=== PATIENT | male | born 1960 | race Caucasian/White ===

== ENCOUNTER 2018-04-11 08:40 | Emergency (ER) | payer SELFPAY ==
--- NOTE | 2018-04-11 09:46 | ER Document Report ---
ED General - General Chief Complaint: Fever Stated Complaint: BREATHING PROBLEMS,FEVER Time Seen by Provider: 04/11/18 09:45 Notes: Patient is a 58-year-old male that presents to the emergency department for chief complaint of shortness of breath, and fever. Patient states his been feeling more short of breath of the past week, with having to take breaks with his normal activities, to catch his breath. He believes he has COPD but has not been diagnosed with it, he is a former heavy smoker. He states he is noticed wheezing, and he is felt febrile, but did not take his temperature over the last 3 days. He denies noting any significant cough, congestion, nausea, vomiting, abdominal pain or chest pain. Past Medical History: Possible COPD Past Surgical History: Denies surgical history Social History: Former heavy smoker, denies illicit drug use, admits to occasional alcohol use. Family History: Reviewed and noncontributory for presenting illness Allergies: Reviewed, see documented allergy list. REVIEW OF SYSTEMS: Other than noted above, the 12 point review of systems was reviewed with the patient and were negative, all pertinent findings are included in the HPI. PHYSICAL EXAMINATION: Vital signs reviewed, nursing noted reviewed. GENERAL: Well-appearing, well-nourished and in no acute distress. HEAD: Atraumatic, normocephalic. EYES: Eyes appear normal, extraocular movements intact, sclera anicteric, conjunctiva are normal. ENT: nares patent, oropharynx clear without exudates. Moist mucous membranes. NECK: Normal range of motion, supple without lymphadenopathy LUNGS: Significantly diminished lung sounds, faint expiratory wheezing noted throughout all lung arndt, no rales, no acute respiratory distress. HEART: Regular rate and rhythm without murmurs ABDOMEN: Soft, obese, nontender, normoactive bowel sounds. No rebound, guarding , or rigidity. No masses appreciated. EXTREMITIES: Nontender, good range of motion, no pitting or edema. NEUROLOGICAL: No focal neurological deficits. Moves all extremities spontaneously Motor and sensory grossly intact on exam. PSYCH: Normal mood, normal affect. SKIN: Warm, Dry, normal turgor, no rashes or lesions noted on exposed skin - Related Data Allergies/Adverse Reactions: No Known Allergies Allergy (Verified 04/11/18 08:47) Past Medical History - Social History Smoking Status: Former Smoker Family History: Reviewed & Not Pertinent Patient has suicidal ideation: No Patient has homicidal ideation: No Renal/ Medical History: Denies: Hx Peritoneal Dialysis - Immunizations Hx Diphtheria, Pertussis, Tetanus Vaccination: Yes Physical Exam - Vital signs Vitals: Temp Pulse Resp BP Pulse Ox 98.1 F 81 18 149/92 H 96 04/11/18 08:51 04/11/18 08:51 04/11/18 08:51 04/11/18 08:51 04/11/18 08:51 Course - Re-evaluation Re-evalutation: Patient seen and examined vital signs reviewed. Laboratory data and imaging were ordered as appropriate for the patient's presenting symptoms and complaint, with consideration of any critical or life threatening conditions that may be associated with their obtained history and exam as noted above. Patient was treated with DuoNeb breathing treatments, and IV Solu-Medrol. Results were reviewed when available and demonstrated negative chest x-ray, blood work unremarkable, troponin negative The patient was re-evaluated and was much improved, not hypoxic Evaluation was most consistent with acute exacerbation of COPD, advised follow- up with primary care, given referral, given prescriptions for albuterol, and prednisone to take, advised return if symptoms worsen. Results were discussed with the patient at this point, after careful consideration I feel that that patient can be discharged from the emergency department, the patient was educated treatments and reasons to return to the emergency department based on their presumed diagnosis as noted above, they were advised to followup with a primary care physician in 2-3 days. Patient was agreeable to plan of care. *Note is created using voice recognition software and may contain spelling, syntax or grammatical errors. Laboratory 04/11/18 04/11/18 04/11/18 09:45 09:45 09:45 WBC 2.8 L RBC 4.04 L Hgb 13.9 Hct 40.5 MCV 100 H MCH 34.4 H MCHC 34.2 RDW 13.2 Plt Count 158 Seg Neutrophils % 72.4 Lymphocytes % 16.1 Monocytes % 10.7 Eosinophils % 0.4 Basophils % 0.4 Absolute Neutrophils 2.1 Absolute Lymphocytes 0.5 Absolute Monocytes 0.3 Absolute Eosinophils 0.0 Absolute Basophils 0.0 Sodium Cancelled Potassium Cancelled Chloride Cancelled Carbon Dioxide Cancelled Anion Gap Cancelled BUN Cancelled Creatinine Cancelled Est GFR ( Amer) Cancelled Est GFR (Non-Af Amer) Cancelled Glucose Cancelled Calcium Cancelled Total Bilirubin Cancelled Direct Bilirubin Cancelled Neonat Total Bilirubin Cancelled Neonat Direct Bilirubin Cancelled Neonat Indirect Bili Cancelled AST Cancelled ALT Cancelled Alkaline Phosphatase Cancelled Troponin I Cancelled Total Protein Cancelled Albumin Cancelled Urine Color Urine Appearance Urine pH Ur Specific Holmes Urine Protein Urine Glucose (UA) Urine Ketones Urine Blood Urine Nitrite Urine Bilirubin Urine Urobilinogen Ur Leukocyte Esterase Urine WBC (Auto) Urine RBC (Auto) Urine Mucus (Auto) Urine Ascorbic Acid 04/11/18 04/11/18 04/11/18 09:45 10:59 10:59 WBC RBC Hgb Hct MCV MCH MCHC RDW Plt Count Seg Neutrophils % Lymphocytes % Monocytes % Eosinophils % Basophils % Absolute Neutrophils Absolute Lymphocytes Absolute Monocytes Absolute Eosinophils Absolute Basophils Sodium 138.5 Potassium 4.5 Chloride 100 Carbon Dioxide 29 Anion Gap 10 BUN 14 Creatinine 0.73 Est GFR ( Amer) > 60 Est GFR (Non-Af Amer) > 60 Glucose 106 Calcium 8.8 Total Bilirubin 1.0 Direct Bilirubin 0.4 Neonat Total Bilirubin Not Reportable Neonat Direct Bilirubin Not Reportable Neonat Indirect Bili Not Reportable AST 82 H ALT 80 H Alkaline Phosphatase 85 Troponin I < 0.012 Total Protein 6.7 Albumin 4.0 Urine Color YELLOW Urine Appearance CLEAR Urine pH 5.0 Ur Specific Holmes 1.014 Urine Protein NEGATIVE Urine Glucose (UA) NEGATIVE Urine Ketones NEGATIVE Urine Blood SMALL H Urine Nitrite NEGATIVE Urine Bilirubin NEGATIVE Urine Urobilinogen NEGATIVE Ur Leukocyte Esterase NEGATIVE Urine WBC (Auto) 0 Urine RBC (Auto) 2 Urine Mucus (Auto) RARE Urine Ascorbic Acid NEGATIVE Chest X-Ray 04/11/18 09:28 IMPRESSION: NO ACUTE RADIOGRAPHIC FINDING IN THE CHEST. - Vital Signs Vital signs: Temp Pulse Resp BP Pulse Ox 99.0 F 110 H 18 140/69 H 95 04/11/18 12:26 04/11/18 12:26 04/11/18 12:26 04/11/18 12:26 04/11/18 12:26 - Laboratory Result Diagrams: 04/11/18 09:45 04/11/18 10:59 Laboratory results interpreted by me: 04/11/18 04/11/18 04/11/18 09:45 09:45 10:59 WBC 2.8 L RBC 4.04 L MCV 100 H MCH 34.4 H AST 82 H ALT 80 H Urine Blood SMALL H - EKG Interpretation by Me Additional EKG results interpreted by me: EKG demonstrates sinus rhythm with a ventricular rate of 77 bpm, normal axis, normal intervals, no evidence of acute ischemia on this EKG, no prior for comparison. Discharge - Discharge Clinical Impression: Acute exacerbation of chronic obstructive pulmonary disease (COPD) Condition: Stable Disposition: HOME, SELF-CARE Additional Instructions: Please return to the emergency department if you have any worsening, or concern of your symptoms. Please return to the emergency department if you develop chest pain, difficulty breathing, severe abdominal pain, or ongoing vomiting. Please follow-up with your primary care physician in 2-3 days and any other recommended physicians. If prescribed, take all medications as directed. If you have any questions or concerns do not hesitate to return the emergency department for evaluation. Prescriptions: Prednisone [Deltasone 20 mg Tablet] 3 tab PO DAILY 5 Days #15 tablet Referrals: ZACK LEDEZMA MD [ACTIVE STAFF] - Follow up in 3-5 days (or your primary care. )
[2018-04-11] MEDS ORDERED: METHYLPREDNISOLONE INJ 125 MG/2 ML SDV IV ONE (10:05)
[2018-04-11] MEDS ORDERED: IPRATROPIUM/ALBUTEROL 0.5-2.5 MG/3 ML AMPUL NEB ONE (10:05)
--- NOTE | 2018-04-11 10:09 | RADIOLOGY REPORT (SQ) ---
EXAM DESCRIPTION: CHEST SINGLE VIEW COMPLETED DATE/TIME: 04/11/2018 9:46 am REASON FOR STUDY: SOB COMPARISON: None. EXAM PARAMETERS: NUMBER OF VIEWS: One view. TECHNIQUE: Single frontal radiographic view of the chest acquired. RADIATION DOSE: NA LIMITATIONS: None. FINDINGS: LUNGS AND PLEURA: No opacities, masses or pneumothorax. No pleural effusion. MEDIASTINUM AND HILAR STRUCTURES: No masses. Contour normal. HEART AND VASCULAR STRUCTURES: Heart normal in size. Normal vasculature. BONES: No acute findings. HARDWARE: None in the chest. OTHER: No other significant finding. IMPRESSION: NO ACUTE RADIOGRAPHIC FINDING IN THE CHEST. TECHNICAL DOCUMENTATION: JOB ID: [id number] [employer]- All Rights Reserved Reading location - IP/workstation name: [email or web address]
[2018-04-11 10:14] LABS: ABSOLUTE LYMPHOCYTES (AUTO) 0.5 10^3/uL (0.5-4.7); ABSOLUTE MONOCYTES (AUTO) 0.3 10^3/uL (0.1-1.4); ABSOLUTE NEUT (AUTO) 2.1 10^3/uL (1.7-8.2); BASOPHILS % (AUTO) 0.4 % (0-2); EOSINOPHILS % (AUTO) 0.4 % (0-6); HEMATOCRIT 40.5 % (37.9-51.0); HEMOGLOBIN 13.9 g/dL (13.5-17.0); LYMPHOCYTES % (AUTO) 16.1 % (13-45); MEAN CORPUSCULAR HEMOGLOBIN 34.4 pg (27.0-33.4); MEAN CORPUSCULAR HGB CONC 34.2 g/dL (32.0-36.0); MEAN CORPUSCULAR VOLUME 100 fl (80-97); MONOCYTES % (AUTO) 10.7 % (3-13); PLATELET COUNT 158 10^3/uL (150-450); RED BLOOD COUNT 4.04 10^6/uL (4.35-5.55); RED CELL DISTRIBUTION WIDTH 13.2 % (11.5-14.0); SEGMENTED NEUTROPHILS % (AUTO) 72.4 % (42-78); TOTAL CELLS COUNTED % (AUTO) 100 %; WHITE BLOOD COUNT 2.8 10^3/uL (4.0-10.5)
[2018-04-11 10:22] LABS: APPEARANCE,URINE CLEAR; BILIRUBIN,URINE NEGATIVE (NEGATIVE); COLOR,URINE YELLOW; GLUCOSE, URINE NEGATIVE (NEGATIVE); KETONES,URINE NEGATIVE (NEGATIVE); LEUKOCYTE ESTERASE,URINE NEGATIVE (NEGATIVE); NITRITE,URINE NEGATIVE (NEGATIVE); PROTEIN,URINE NEGATIVE (NEGATIVE); URINE SPECIFIC GRAVITY 1.014; UROBILINOGEN,URINE NEGATIVE mg/dL (<2.0)
[2018-04-11 11:25] LABS: ALANINE AMINOTRANSFERASE 80 U/L (21-72); ALKALINE PHOSPHATASE 85 U/L (38-126); ANION GAP 10 (5-19); ASPARTATE AMINO TRANSFERASE 82 U/L (17-59); BILIRUBIN,DIRECT 0.4 mg/dL (0.0-0.4); BLOOD UREA NITROGEN 14 mg/dL (7-20); CALCIUM 8.8 mg/dL (8.4-10.2); CARBON DIOXIDE 29 mmol/L (22-30); CHLORIDE 100 mmol/L (98-107); GLUCOSE 106 mg/dL (75-110); POTASSIUM 4.5 mmol/L (3.6-5.0); SODIUM 138.5 mmol/L (137-145); TOTAL PROTEIN 6.7 g/dL (6.3-8.2)
[2018-04-11] MEDS ORDERED: ALBUTEROL SULFATE HFA (90 MCG/PUFF) 8 GM MDI (1 MDI/ER DISP) IH ONE (11:53)
[2018-04-11 12:24] VITALS: BP 140/69
--- NOTE | 2018-04-11 13:39 | EKG REPORT ---
SEVERITY:- NORMAL ECG - SINUS RHYTHM : Confirmed by: Toribio Conteh MD 11-Apr-2018 13:38:31
== END 2018-04-11 12:26 | disposition home or self-care (01) ==
LOC: ER 08:40
DX: J44.1 Chronic obstructive pulmonary disease with (acute) exacerbation (principal); R50.9 Fever, unspecified; R06.02 Shortness of breath; Z87.891 Personal history of nicotine dependence
CPT/HCPCS: 93005; 94640; 99285; 96374; 36415; 85025; 80053; 81001; 84484; 71045; 93010; J2930; J3490; J7620

== ENCOUNTER 2018-04-16 08:39 | Emergency (ER) | payer SELFPAY ==
--- NOTE | 2018-04-16 09:36 | ER Document Report ---
ED Medical Screen (RME) - General Chief Complaint: Leg Swelling Stated Complaint: LEG SWELLING/PAIN Time Seen by Provider: 04/16/18 09:23 Mode of Arrival: Ambulatory Information source: Patient, [facility] Records Notes: 58-year-old male presents with bilateral leg redness, pain that started yesterday. Patient denies known allergies, new exposures, new soaps. He was treated for a COPD exacerbation 1 week ago but was not started on any antibiotics. I have greeted and performed a rapid initial assessment of this patient. A comprehensive ED assessment and evaluation of the patient, analysis of test results and completion of medical decision making process we will be contacted by additional ED providers. PHYSICAL EXAMINATION: Vital signs reviewed-within normal limits GENERAL: Well-appearing, well-nourished and in no acute distress. LUNGS: No respiratory distress Musculoskeletal: Normal range of motion NEUROLOGICAL: Normal speech, normal gait. PSYCH: Normal mood, normal affect. SKIN: Erythematous rash bilateral lower extremities tender to the touch. TRAVEL OUTSIDE OF THE [place] IN LAST 30 DAYS: No - HPI Onset: Yesterday Onset/Duration: Sudden Quality of pain: Burning Severity: Moderate Associated Symptoms: denies: Abdominal pain, Chills, Fever, Nausea Exacerbated by: Other - Palpation Relieved by: Denies Similar symptoms previously: No Recently seen / treated by doctor: Yes - April 02, 2018 for COPD exacerbation - Related Data Smoking: Quit less than 1 year Frequency of alcohol use: Occasional Drug Abuse: None Allergies/Adverse Reactions: No Known Allergies Allergy (Verified 04/16/18 09:29) Past Medical History - Social History Chew tobacco use (# tins/day): No Frequency of alcohol use: wine at night Drug Abuse: None Pulmonary Medical History: Reports: Hx COPD Renal/ Medical History: Denies: Hx Peritoneal Dialysis - Immunizations Hx Diphtheria, Pertussis, Tetanus Vaccination: Yes Physical Exam - Vital signs Vitals: Temp Pulse Resp BP Pulse Ox 98.0 F 103 H 18 135/78 H 95 04/16/18 09:17 04/16/18 09:17 04/16/18 09:17 04/16/18 09:17 04/16/18 09:17 Course - Vital Signs Vital signs: Temp Pulse Resp BP Pulse Ox 98.0 F 103 H 18 135/78 H 95 04/16/18 09:17 04/16/18 09:17 04/16/18 09:17 04/16/18 09:17 04/16/18 09:17
--- NOTE | 2018-04-16 11:11 | ER Document Report ---
ED General - General Chief Complaint: Leg Swelling Stated Complaint: LEG SWELLING/PAIN Time Seen by Provider: 04/16/18 09:23 Mode of Arrival: Ambulatory Information source: Patient Notes: 58 year old Male presents to the ED with complaints of bilateral leg erythema, calf pain that started yesterday. Painful to touch. Denies new soap, detergent, lotion, food, medications. Patient was treated for COPD a week ago but not started on antibiotics. Patient denies recent travel, surgery, hx of DVT/PE. TRAVEL OUTSIDE OF THE [place] IN LAST 30 DAYS: No - HPI Onset: Yesterday Onset/Duration: Sudden Quality of pain: Throbbing Associated symptoms: None Exacerbated by: Denies Relieved by: Denies Similar symptoms previously: No Recently seen / treated by doctor: No - Related Data Allergies/Adverse Reactions: No Known Allergies Allergy (Verified 04/16/18 10:30) Past Medical History - General Information source: Patient, [facility] Records - Social History Smoking Status: Former Smoker Chew tobacco use (# tins/day): No Frequency of alcohol use: wine at night Drug Abuse: None Family History: Reviewed & Not Pertinent Patient has suicidal ideation: No Patient has homicidal ideation: No Pulmonary Medical History: Reports: Hx COPD Renal/ Medical History: Denies: Hx Peritoneal Dialysis - Immunizations Hx Diphtheria, Pertussis, Tetanus Vaccination: Yes Review of Systems - Review of Systems Constitutional: No symptoms reported EENT: No symptoms reported Cardiovascular: No symptoms reported Respiratory: No symptoms reported Gastrointestinal: No symptoms reported Genitourinary: No symptoms reported Male Genitourinary: No symptoms reported Musculoskeletal: Other - calf pain Skin: Rash Hematologic/Lymphatic: No symptoms reported Neurological/Psychological: No symptoms reported -: Yes All other systems reviewed and negative Physical Exam - Vital signs Vitals: Temp Pulse Resp BP Pulse Ox 98.0 F 103 H 18 135/78 H 95 04/16/18 09:17 04/16/18 09:17 04/16/18 09:17 04/16/18 09:17 04/16/18 09:17 - Notes Notes: PHYSICAL EXAMINATION: GENERAL: Well-appearing, well-nourished and in no acute distress. HEAD: Atraumatic, normocephalic. EYES: Pupils equal round and reactive to light, extraocular movements intact, sclera anicteric, conjunctiva are normal. ENT: Nares patent, oropharynx clear without exudates. Moist mucous membranes. NECK: Normal range of motion, supple without lymphadenopathy LUNGS: Breath sounds clear to auscultation bilaterally and equal. No wheezes rales or rhonchi. HEART: Regular rate and rhythm without murmurs ABDOMEN: Soft, nontender, nondistended abdomen. No guarding, no rebound. No masses appreciated. Musculoskeletal: Normal range of motion, No pitting edema. Bilateral calf tenderness. Erythema and warmth to the distal lower extremities bilaterally that is tender to touch. 2+ DP/PT pulses. NEUROLOGICAL: Cranial nerves grossly intact. Normal speech, normal gait. Normal sensory, motor exams PSYCH: Normal mood, normal affect. SKIN: Warm, Dry, normal turgor, no rashes or lesions noted. Course - Re-evaluation Re-evalutation: 04/16/18 12:53 Venous doppler done of the bilateral lower extremities and negative. I will start on keflex for cellulitis. No history of MRSA. Patient instructed to take the medication prescribed as directed, to follow-up with his primary care physician this week, and to return for any worsening symptoms. Patient is agreeable with plan of care. 04/16/18 12:58 - Vital Signs Vital signs: Temp Pulse Resp BP Pulse Ox 98.0 F 103 H 18 135/78 H 95 04/16/18 09:17 04/16/18 09:17 04/16/18 09:17 04/16/18 09:17 04/16/18 09:17 Discharge - Discharge Clinical Impression: Cellulitis Qualifiers: Site of cellulitis: extremity Site of cellulitis of extremity: lower extremity Laterality: unspecified laterality Qualified Code(s): L03.119 - Cellulitis of unspecified part of limb Condition: Good Disposition: HOME, SELF-CARE Instructions: Cellulitis ([facility]) Prescriptions: Cephalexin Monohydrate [Keflex 500 mg Capsule] 500 mg PO QID #20 capsule Referrals: SHALONDA FERRER MD [COMMUNITY BASED STAFF] - Follow up as needed
--- NOTE | 2018-04-16 12:40 | XCELERA REPORT ---
[address] [facility] [address] Lower Extremity Venous Evaluation Procedure: Color flow and duplex imaging bilaterally of the veins of the lower extremities as well as the Common Femoral veins. Right Sided Venous Evaluation Normal vessel filling wall to wall, compression and augmentation as well as Colour flow down to the infrageniculate veins. Left Sided Venous Evaluation Normal vessel filling wall to wall, compression and augmentation as well as Colour flow down to the infrageniculate veins. Interpretation Summary No duplex evidence of DVT or obstruction in the bilateral lower extremities. Name: ARUNA YUSUF Age: 58 yrs Gender: Male : 1960 Patient Status: Emergency Patient Location: ER Study Date: 04/16/2018 11:50 AM Reason For Study: bilateral erythema and calf tenderness Ordering Physician: PIPER BEDOYA Performed By: Julieth Manzanares : PIPER BEDOYA > Julian Moreno
[2018-04-16 13:14] VITALS: BP 129/77
== END 2018-04-16 13:13 | disposition home or self-care (01) ==
LOC: ER 08:39
DX: L03.119 Cellulitis of unspecified part of limb (principal); M79.662 Pain in left lower leg; M79.661 Pain in right lower leg; J44.9 Chronic obstructive pulmonary disease, unspecified; Z87.891 Personal history of nicotine dependence
CPT/HCPCS: 93970; 99283

== ENCOUNTER 2019-03-24 11:22 | Emergency (ER) | payer SELFPAY ==
[2019-03-24 11:37] VITALS: BP 139/81
== END 2019-03-24 12:20 | disposition left against medical advice (07) ==
LOC: ER 11:22
DX: Z53.21 Procedure and treatment not carried out due to patient leaving prior to being seen by health care provider (principal); I10 Essential (primary) hypertension

== ENCOUNTER 2020-04-12 17:58 | Emergency (ER) | payer SELFPAY ==
[2020-04-12] MEDS ORDERED: IPRATROPIUM/ALBUTEROL 0.5-2.5 MG/3 ML AMPUL NEB ONE (18:38)
--- NOTE | 2020-04-12 18:39 | ER Document Report ---
ED Medical Screen (RME) - General Chief Complaint: Cough Stated Complaint: COUGH Time Seen by Provider: 04/12/20 18:37 Information source: Patient Notes: Patient presents complaining of cough for the past week with shortness of breath. Patient reports occasional chest pressure. Patient denies any fever. Patient does complain of sinus pressure as well. Patient has underlying history of COPD and states he is run out of his inhaler. I have greeted and performed a rapid initial assessment of this patient. A comprehensive ED assessment and evaluation of the patient, analysis of test results and completion of the medical decision making process will be conducted by additional ED providers. TRAVEL OUTSIDE OF THE [place] IN LAST 30 DAYS: No - Related Data Allergies/Adverse Reactions: No Known Allergies Allergy (Verified 04/12/20 18:35) Past Medical History Pulmonary Medical History: Reports: Hx COPD Renal/ Medical History: Denies: Hx Peritoneal Dialysis - Immunizations Hx Diphtheria, Pertussis, Tetanus Vaccination: Yes Physical Exam - Vital signs Vitals: Temp Pulse Resp BP Pulse Ox 98.9 F 75 16 155/80 H 98 04/12/20 18:10 04/12/20 18:10 04/12/20 18:10 04/12/20 18:10 04/12/20 18:10 - Respiratory Respiratory status: No respiratory distress Breath sounds: Nonproductive cough, Wheezing - Scattered wheezing Course - Vital Signs Vital signs: Temp Pulse Resp BP Pulse Ox 98.9 F 75 16 155/80 H 98 04/12/20 18:10 04/12/20 18:10 04/12/20 18:10 04/12/20 18:10 04/12/20 18:10
--- NOTE | 2020-04-12 19:26 | RADIOLOGY REPORT (SQ) ---
EXAM DESCRIPTION: CHEST SINGLE VIEW IMAGES COMPLETED DATE/TIME: 04/12/2020 7:04 pm REASON FOR STUDY: cp, cough COMPARISON: 04/11/2018 EXAM PARAMETERS: NUMBER OF VIEWS: One view. TECHNIQUE: Single frontal radiographic view of the chest acquired. RADIATION DOSE: NA LIMITATIONS: None. FINDINGS: LUNGS AND PLEURA: No opacities, masses or pneumothorax. No pleural effusion. MEDIASTINUM AND HILAR STRUCTURES: No masses. Contour normal. HEART AND VASCULAR STRUCTURES: Heart normal in size. Normal vasculature. BONES: No acute findings. HARDWARE: None in the chest. OTHER: No other significant finding. IMPRESSION: NO ACUTE RADIOGRAPHIC FINDING IN THE CHEST. TECHNICAL DOCUMENTATION: JOB ID: [id number] 2010 [employer]- All Rights Reserved Reading location - IP/workstation name: [email or web address]
[2020-04-12 21:40] LABS: ABSOLUTE EOSINOPHILS # (AUTO) 0.1 10^3/uL (0.0-0.6); ABSOLUTE LYMPHOCYTES (AUTO) 1.2 10^3/uL (0.5-4.7); ABSOLUTE MONOCYTES (AUTO) 0.4 10^3/uL (0.1-1.4); BASOPHILS % (AUTO) 0.4 % (0-2); EOSINOPHILS % (AUTO) 2.5 % (0-6); HEMATOCRIT 38.6 % (37.9-51.0); LYMPHOCYTES % (AUTO) 24.8 % (13-45); MEAN CORPUSCULAR HEMOGLOBIN 33.3 pg (27.0-33.4); MEAN CORPUSCULAR HGB CONC 33.8 g/dL (32.0-36.0); MEAN CORPUSCULAR VOLUME 98 fl (80-97); MONOCYTES % (AUTO) 9.2 % (3-13); PLATELET COUNT 279 10^3/uL (150-450); RED BLOOD COUNT 3.92 10^6/uL (4.35-5.55); RED CELL DISTRIBUTION WIDTH 13.3 % (11.5-14.0); SEGMENTED NEUTROPHILS % (AUTO) 63.1 % (42-78); TOTAL CELLS COUNTED % (AUTO) 100 %; WHITE BLOOD COUNT 4.8 10^3/uL (4.0-10.5)
[2020-04-12 21:41] LABS: ALBUMIN 4.2 g/dL (3.5-5.0); ALKALINE PHOSPHATASE 63 U/L (38-126); ASPARTATE AMINO TRANSFERASE 23 U/L (17-59); BILIRUBIN,DIRECT 0.1 mg/dL (0.0-0.4); BILIRUBIN,TOTAL 0.6 mg/dL (0.2-1.3); BLOOD UREA NITROGEN 16 mg/dL (7-20); CALCIUM 9.2 mg/dL (8.4-10.2); CHLORIDE 102 mmol/L (98-107); GLUCOSE 99 mg/dL (75-110); POTASSIUM 4.2 mmol/L (3.6-5.0); TOTAL PROTEIN 7.1 g/dL (6.3-8.2)
[2020-04-12 21:47] LABS: ANION GAP 7 (5-19); CARBON DIOXIDE 28 mmol/L (22-30)
--- NOTE | 2020-04-12 22:07 | ER Document Report ---
Entered by EVI GALE SCRIBE 04/12/202042 Acting as scribe for:HEIDY LEAVITT DO ED General - General Chief Complaint: Cough Stated Complaint: COUGH Time Seen by Provider: 04/12/20 18:37 Information source: Patient Notes: This 60 year old male patient presents to the emergency department today with a non-productive cough and shortness of breath with exertion. Patient states x3 weeks ago he thought he had a sinus infection with his nose discharging some blood and colorful sputum. Denies any fever or chest pain. Patient reports history of COPD and ran out of his albuterol inhaler x1 week ago. TRAVEL OUTSIDE OF THE [place] IN LAST 30 DAYS: No - Related Data Allergies/Adverse Reactions: No Known Allergies Allergy (Verified 04/12/20 18:35) Past Medical History - General Information source: Patient - Social History Smoking Status: Former Smoker Cigarette use (# per day): No Chew tobacco use (# tins/day): No Frequency of alcohol use: None Drug Abuse: None Family History: Reviewed & Not Pertinent Patient has homicidal ideation: No Pulmonary Medical History: Reports: Hx COPD Renal/ Medical History: Denies: Hx Peritoneal Dialysis - Immunizations Hx Diphtheria, Pertussis, Tetanus Vaccination: Yes Review of Systems - Review of Systems Constitutional: See HPI. denies: Fever EENT: See HPI, Nose discharge - blood, colorful sputum Cardiovascular: See HPI. denies: Chest pain Respiratory: See HPI, Cough, Short of breath - with exertion. denies: Sputum Gastrointestinal: No symptoms reported Genitourinary: No symptoms reported Male Genitourinary: No symptoms reported Musculoskeletal: No symptoms reported Skin: No symptoms reported Hematologic/Lymphatic: No symptoms reported Neurological/Psychological: No symptoms reported -: Yes All other systems reviewed and negative Physical Exam - Vital signs Vitals: Temp Pulse Resp BP Pulse Ox 98.9 F 75 16 155/80 H 98 04/12/20 18:10 04/12/20 18:10 04/12/20 18:10 04/12/20 18:10 04/12/20 18:10 - General General appearance: Appears well, Alert - HEENT Head: Normocephalic, Atraumatic Eyes: Normal Pupils: PERRL - Respiratory Respiratory status: No respiratory distress Chest status: Nontender Chest palpation: Normal Notes: Diminished breath sounds bilaterally. Expiratory wheeze. - Cardiovascular Rhythm: Regular Heart sounds: Normal auscultation Murmur: No - Abdominal Inspection: Obese, Other - soft Distension: No distension Bowel sounds: Normal Tenderness: Nontender - Extremities General upper extremity: Normal inspection, Normal ROM General lower extremity: Normal inspection, Normal ROM. No: Edema - Neurological Neuro grossly intact: Yes Cognition: Normal Orientation: AAOx4 Jesi Coma Scale Eye Opening: Spontaneous Sebastian Coma Scale Verbal: Oriented Sebastian Coma Scale Motor: Obeys Commands Jesi Coma Scale Total: 15 Speech: Normal Motor strength normal: LUE, RUE, LLE, RLE Sensory: Normal - Psychological Associated symptoms: Normal affect, Normal mood - Skin Skin Temperature: Warm Skin Moisture: Dry Skin Color: Normal Course - Re-evaluation Re-evalutation: 04/12/20 22:05 MDM 60 year old with copd - out of albuterol for about a week, tested - for covid about 2 weeks ago, is here with cough, wheeze and sob. Nontoxic here. Looks well. He can speak easily in full sentences. Does not feel this it covid nor desire repeat testing and I agree it is not necessary at this point. - Vital Signs Vital signs: Temp Pulse Resp BP Pulse Ox 98.9 F 75 16 155/80 H 98 04/12/20 18:10 04/12/20 18:10 04/12/20 18:10 04/12/20 18:10 04/12/20 18:10 - Laboratory Result Diagrams: 04/12/20 21:07 04/12/20 21:07 Laboratory results interpreted by me: 04/12/20 04/12/20 21:07 21:07 RBC 3.92 L Hgb 13.0 L MCV 98 H Sodium 136.5 L - Diagnostic Test Radiology reviewed: Image reviewed, Reports reviewed Discharge - Discharge Clinical Impression: COPD with exacerbation, Bronchitis Condition: Stable Disposition: HOME, SELF-CARE Instructions: Chronic Obstructive Lung Disease ([facility]), Bronchitis ([facility]), Family Physicians / Practices Additional Instructions: Rest, plenty of fluids, Take your medicine as directed. Please return here for chest pain, shortness of breath, fever, other problems or concerns. Forms: Elevated Blood Pressure I personally performed the services described in the documentation, reviewed and edited the documentation which was dictated to the scribe in my presence, and it accurately records my words and actions.
[2020-04-12 22:21] VITALS: BP 142/76
== END 2020-04-12 22:22 | disposition home or self-care (01) ==
LOC: ER 17:58
DX: R05 Cough (principal); J44.9 Chronic obstructive pulmonary disease, unspecified
CPT/HCPCS: 36415; 71045; 80053; 84484; 85025; 94640; 99284

== ENCOUNTER 2020-04-20 17:35 | Emergency (ER) | payer SELFPAY ==
--- NOTE | 2020-04-20 17:58 | EKG REPORT ---
SEVERITY:- NORMAL ECG - SINUS RHYTHM : Confirmed by: Litzy Gordillo 20-Apr-2020 17:58:06
--- NOTE | 2020-04-20 17:59 | ER Document Report ---
ED Medical Screen (RME) - General Chief Complaint: Chest Pain Stated Complaint: CHEST PAIN, SHORTNESS OF BREATH Time Seen by Provider: 04/20/20 17:52 Notes: HPI: 60-year-old male presenting to the emergency department complaining of 2 to 3 weeks of intermittent left-sided chest pain under the breast that will last for several seconds and is very sharp in nature does not radiate into the back neck or shoulder or arm. No shortness of breath that is worse than normal for him. Exertional activities do not bring on the chest discomfort. Has not seen cardiology in many many years. Reports no cardiac problems he is aware of but father had history of multiple stents PHYSICAL EXAMINATION: Patient is mildly disheveled, lung sounds are clear to auscultation regular rate and rhythm. EKG normal sinus rhythm without ectopy. No reproducible pain on palpation of the chest wall I have greeted and performed a rapid initial assessment of this patient. A comprehensive ED assessment and evaluation of the patient, analysis of test results and completion of medical decision making process will be conducted by an additional ED providers. TRAVEL OUTSIDE OF THE [place] IN LAST 30 DAYS: No - Related Data Allergies/Adverse Reactions: No Known Allergies Allergy (Verified 04/20/20 17:52) Past Medical History Pulmonary Medical History: Reports: Hx COPD Renal/ Medical History: Denies: Hx Peritoneal Dialysis - Immunizations Hx Diphtheria, Pertussis, Tetanus Vaccination: Yes Physical Exam - Vital signs Vitals: Temp Pulse Resp BP Pulse Ox 97.7 F 82 20 130/70 H 96 04/20/20 17:45 04/20/20 17:45 04/20/20 17:45 04/20/20 17:45 04/20/20 17:45 Course - Vital Signs Vital signs: Temp Pulse Resp BP Pulse Ox 97.7 F 82 20 130/70 H 96 04/20/20 17:45 04/20/20 17:45 04/20/20 17:45 04/20/20 17:45 04/20/20 17:45
--- NOTE | 2020-04-20 18:36 | RADIOLOGY REPORT (SQ) ---
EXAM DESCRIPTION: CHEST SINGLE VIEW IMAGES COMPLETED DATE/TIME: 04/20/2020 6:07 pm REASON FOR STUDY: chest pain COMPARISON: 04/12/2020 EXAM PARAMETERS: NUMBER OF VIEWS: One view. TECHNIQUE: Single frontal radiographic view of the chest acquired. RADIATION DOSE: NA LIMITATIONS: None. FINDINGS: LUNGS AND PLEURA: Hyperinflation of the lungs, attenuation of the vessels and some flatte madelin of the diaphragms. Right upper paramediastinal bulla is again noted. Findings suggest COPD. N o acute pulmonary consolidation. No pneumothorax or pleural effusion. MEDIASTINUM AND HILAR STRUCTURES: No masses. Contour normal. HEART AND VASCULAR STRUCTURES: Heart normal in size. Normal vasculature. BONES: No acute findings. HARDWARE: None in the chest. OTHER: No other significant finding. IMPRESSION: 1. Findings suggest COPD. No acute pulmonary findings. TECHNICAL DOCUMENTATION: JOB ID: [id number] 2010 [employer]- All Rights Reserved Reading location - IP/workstation name: [email or web address]
[2020-04-20 18:44] LABS: ABSOLUTE LYMPHOCYTES (AUTO) 1.3 10^3/uL (0.5-4.7); ABSOLUTE MONOCYTES (AUTO) 0.5 10^3/uL (0.1-1.4); ABSOLUTE NEUT (AUTO) 3.6 10^3/uL (1.7-8.2); BASOPHILS % (AUTO) 0.4 % (0-2); EOSINOPHILS % (AUTO) 0.8 % (0-6); HEMOGLOBIN 13.5 g/dL (13.5-17.0); LYMPHOCYTES % (AUTO) 23.3 % (13-45); MEAN CORPUSCULAR HEMOGLOBIN 33.2 pg (27.0-33.4); MEAN CORPUSCULAR HGB CONC 33.7 g/dL (32.0-36.0); MEAN CORPUSCULAR VOLUME 99 fl (80-97); MONOCYTES % (AUTO) 9.4 % (3-13); PLATELET COUNT 258 10^3/uL (150-450); RED BLOOD COUNT 4.06 10^6/uL (4.35-5.55); RED CELL DISTRIBUTION WIDTH 13.5 % (11.5-14.0); SEGMENTED NEUTROPHILS % (AUTO) 66.1 % (42-78); TOTAL CELLS COUNTED % (AUTO) 100 %; WHITE BLOOD COUNT 5.4 10^3/uL (4.0-10.5)
[2020-04-20 18:54] LABS: INTERNATIONAL RATION (INR) 0.91; PROTHROMBIN TIME 12.5 SEC (11.4-15.4)
[2020-04-20 19:03] LABS: ALBUMIN 4.3 g/dL (3.5-5.0); ALKALINE PHOSPHATASE 63 U/L (38-126); ANION GAP 7 (5-19); ASPARTATE AMINO TRANSFERASE 24 U/L (17-59); BILIRUBIN,DIRECT 0.1 mg/dL (0.0-0.4); BILIRUBIN,TOTAL 0.5 mg/dL (0.2-1.3); BLOOD UREA NITROGEN 17 mg/dL (7-20); CALCIUM 9.5 mg/dL (8.4-10.2); CARBON DIOXIDE 30 mmol/L (22-30); CHLORIDE 102 mmol/L (98-107); GLUCOSE 88 mg/dL (75-110); POTASSIUM 4.2 mmol/L (3.6-5.0)
--- NOTE | 2020-04-20 21:48 | ER Document Report ---
ED General - General Chief Complaint: Chest Pain Stated Complaint: CHEST PAIN, SHORTNESS OF BREATH Time Seen by Provider: 04/20/20 17:52 TRAVEL OUTSIDE OF THE [place] IN LAST 30 DAYS: No - HPI Notes: Patient is a 60-year-old male who presents emergency department for evaluation of left-sided chest pain. He points to an area overlying the eighth ninth ribs, in the midclavicular line, on the left. Is not radiating. He states that it is sharp, intermittent. Nothing seems to bring it on, nothing seems to make it better. He denies any associated fevers or chills, nausea or vomiting, cough, shortness of breath, diaphoresis, near syncope. The pain is not radiating. He was treated recently for a COPD exacerbation, states that his breathing is back to baseline. He is still on the steroids. - Related Data Allergies/Adverse Reactions: No Known Allergies Allergy (Verified 04/20/20 17:52) Home Medications: Prednisone, aspirin Past Medical History - General Information source: Patient - Social History Smoking Status: Former Smoker Family History: Reviewed & Not Pertinent, CAD Pulmonary Medical History: Reports: Hx COPD Renal/ Medical History: Denies: Hx Peritoneal Dialysis - Immunizations Hx Diphtheria, Pertussis, Tetanus Vaccination: Yes Review of Systems - Review of Systems Constitutional: No symptoms reported EENT: No symptoms reported Cardiovascular: See HPI Respiratory: No symptoms reported Gastrointestinal: No symptoms reported Genitourinary: No symptoms reported Musculoskeletal: No symptoms reported Skin: No symptoms reported Neurological/Psychological: No symptoms reported Physical Exam - Vital signs Vitals: Temp Pulse Resp BP Pulse Ox 97.7 F 82 20 130/70 H 96 04/20/20 17:45 04/20/20 17:45 04/20/20 17:45 04/20/20 17:45 04/20/20 17:45 - Notes Notes: Vital signs reviewed, please refer to chart. Head is normocephalic, atraumatic. Pupils equal round, reactive to light. Neck is supple without meningismus. Heart is regular rate and rhythm. Lungs reveal mildly diminished breath sounds but no wheezes, rales, rhonchi. Abdomen is soft, nontender, normoactive bowel sounds throughout. Extremities without cyanosis, clubbing. Posterior calves are nontender. Peripheral pulses are equal. Skin is warm and dry. Patient is awake, alert, neurological exam is nonfocal. Course - Re-evaluation Re-evalutation: 04/20/20 21:53 Patient presents emergency department for evaluation. He was placed on a primer powder blender wet. Laboratory vesication's were obtained. His labs revealed no abnormality, including a negative troponin. His symptoms of been present intermittently for 3 weeks. He has no PE risk factors, including no history of cancer, no history of DVT or PE, no family history of DVT or PE, no recent surgeries, no exogenous hormone use. He has absolutely no associated symptoms with this. His vital signs are unremarkable. At this point I did have a clear etiology for symptoms. I strongly urged him to follow-up with primary care. He is told that if any worsening or new concerning symptoms of any sort occur, he is to return immediately to the ED for further evaluation. He voiced understanding was discharged. - Vital Signs Vital signs: Temp Pulse Resp BP Pulse Ox 97.7 F 82 20 135/81 H 98 04/20/20 17:45 04/20/20 17:45 04/20/20 21:33 04/20/20 21:33 04/20/20 21:33 - Laboratory Results Result Diagrams: 04/20/20 18:27 04/20/20 18:27 Laboratory Results Interpreted: 04/20/20 18:27 RBC 4.06 L MCV 99 H Critical Laboratory Results Reviewed: No Critical Results - Radiology Results Radiology Results Interpreted: 04/20/20 21:54 Chest X-Ray 04/20/20 17:57 IMPRESSION: 1. Findings suggest COPD. No acute pulmonary findings. Critical Radiology Results Reviewed: No Critical Results - EKG Interpretation by Me Additional EKG results interpreted by me: 04/20/20 21:55 Sinus mechanism with a rate of 85 bpm. Normal axis and intervals. No acute ST changes concerning for ischemia or infarction. Discharge - Discharge Clinical Impression: Chest pain Qualifiers: Chest pain type: unspecified Qualified Code(s): R07.9 - Chest pain, unspecified Condition: Stable Disposition: HOME, SELF-CARE Instructions: Chest Pain of Unclear Cause ([facility]) Additional Instructions: No clear cause was identified for your chest pain today. It is very important that you establish care with a primary care provider, seek out further treatment and evaluation for this chest pain. If you develop worsening pain, new or concerning symptoms of any sort, please return immediately to the emergency department for evaluation.
[2020-04-20 22:22] VITALS: BP 144/83
== END 2020-04-20 22:22 | disposition home or self-care (01) ==
LOC: ER 17:35
DX: R07.9 Chest pain, unspecified (principal); J44.1 Chronic obstructive pulmonary disease with (acute) exacerbation
CPT/HCPCS: 36415; 71045; 80053; 84484; 85025; 85610; 93005; 93010; 99285